=== PATIENT | female | born 1970 | race Two or more races ===

== ENCOUNTER 2016-10-22 19:39 | Emergency (ER) | payer OTHER ==
[~2016-10-22] VITALS: Ht 154.9 cm; Wt 81.6 kg
--- NOTE | 2016-10-22 20:40 | NUR ---
Pt to room, c/o left eye redness, swelling, drainage, pain and itching since yesterday. Visual acuity obtained however pt did not have her glasses with her. Pt resting in position of comfort for self, awaiting further eval
--- NOTE | 2016-10-22 21:10 | NUR ---
Pt seen by MD. Pt stable for discharge per MD. Pt and given ACI. Both verbalized understanding of dc instructions. Pt ambulated out of er with steady gait.
[2016-10-22 21:33] VITALS: BP 137/91
== END 2016-10-22 21:15 | disposition home or self-care (01) ==
LOC: ER 19:50
DX: B30.9 Viral conjunctivitis, unspecified (principal); H35.30 Unspecified macular degeneration
CPT/HCPCS: 99283; A4663